=== PATIENT | female | born 1945 | race Caucasian/White ===

== ENCOUNTER → 2020-04-28 | Outpatient (CLI) | payer MEDICARE, OTHER ==
[~2020-04-28] MED LIST: FIRVANQ50 MG/1 ML PO; IPRATROPIUM BROM3 M1 IH; KLOR-CON M2020 MEQ PO; MELAT3MGTAB PO; NORCO 325 MG-51 TAB PO; SONATA 10MG10 MG PO; SYNTHROID0.075 MG/T PO; TOPROL XL 50MG50 MG PO; TOPROL XL100 MG PO; VITAMIN D 50,1.25 MG PO; XANAX .25M0.25 MG/TA PO
== END ==
LOC: COL.RAD 14:15
DX: N18.4 Chronic kidney disease, stage 4 (severe) (principal)

== ENCOUNTER 2022-06-17 11:41 | Inpatient (IN) | payer MEDICARE, OTHER ==
[~2022-06-17] VITALS: Ht 160 cm; Wt 37.2 kg
[2022-06-17 12:18] LABS: BASO % 0.3 % (0.0-2.0); EOS % 0.3 % (0.0-4.0); GRAN # 13.3 K/mm3 (1.4-6.5); GRAN % 87.2 % (42.2-75.2); LYMPH % 6.3 % (20.0-51.0); MEAN CELL VOLUME 89 fl (80.0-100.0); MEAN CORPUSCULAR HGB CONC 30 g/dl (33.0-37.0); MONO # 0.8 K/mm3 (0.1-0.6); MONO % 5.3 % (1.7-9.3); PLATELET COUNT 924 K/mm3 (130-400); RED BLOOD COUNT 3.37 M/mm3 (4.10-5.30); REDCELL DISTRIBUTION WIDTH-CV 16.5 % (11.5-14.5)
[2022-06-17 12:23] LABS: HEMOGLOBIN 8.9 g/dl (12.5-16.0); MEAN CORPUSCULAR HEMOGLOBIN 26 pg (27-31)
[2022-06-17 12:34] LABS: ALBUMIN 2.6 gm/dL (3.4-4.8); BILIRUBIN,TOTAL 0.4 mg/dL (0.2-1.2); CREATININE, serum 2.02 mg/dL (0.57-1.11); POTASSIUM 3.1 mmol/L (3.5-4.5); TOTAL PROTEIN 7.4 gm/dL (6.2-8.1)
[2022-06-17 12:45] LABS: CALCIUM 13.9 mg/dL (8.4-10.2); TROPONIN-I 0.331 ng/mL (0.00-0.033)
[2022-06-17 13:11] LABS: MAGNESIUM 1.8 mg/dL (1.6-2.6); PHOSPHOROUS 3.1 mg/dL (2.3-4.7)
[2022-06-17 13:35] LABS: PROTHROMBIN TIME 11.8 SECONDS (9.7-12.8)
[2022-06-17 13:45] LABS: URIC ACID 8.7 mg/dL (2.6-6.0)
[2022-06-17] MEDS ORDERED: DAZIDOX10 MG PO (14:44)
[2022-06-17] MEDS ORDERED: COZAAR 50MG50 MG/TAB PO (14:48)
[2022-06-17] MEDS ORDERED: ROXICODONE 55 MG/TAB PO (14:48)
[2022-06-17] MEDS ORDERED: SYNTHROID0.112 MG/T PO (14:49)
[2022-06-17] MEDS ORDERED: EFFEXOR XR37.5 MG/CA PO (14:49)
[2022-06-17] MEDS ORDERED: SONATA 10MG10 MG (14:50)
[2022-06-17 16:29] LABS: COLLECTION METHOD CATHETER
--- NOTE | 2022-06-17 16:33 | NUR ---
PT ADMITTED TO ROOM 309, REPORT RECEIVED FROM ED RN, PT ORIENTED TO ROOM/FLOOR ROUTINES, FALL PRECAUTIONS IN PLACE, CALL LIGHT IN REACH
[2022-06-17 16:37] VITALS: BP 158/76; PULSE 79; TEMP 97.7
[2022-06-17 16:40] LABS: PH 5.5 (5.0-8.5); URINE APPEARANCE Clear (CLEAR/HAZY); URINE BLOOD TRACE-INTACT (NEGATIVE); URINE COLOR Yellow (YELLOW); URINE GLUCOSE Negative (NEGATIVE); URINE KETONE Negative (NEGATIVE); URINE NITRATE Negative (NEGATIVE); URINE PROTEIN(semi-quant) 1+ (NEGATIVE); URINE UROBILINOGEN 0.2 E.U/dL (0.2-1.0)
[2022-06-17 16:41] LABS: MUCOUS Present (NOT PRESENT); SQUAMOUS EPITHELIAL 0-2 /hpf (0-10); URINE BACTERIA Rare /hpf (NONE SEEN)
[2022-06-17 19:49] VITALS: BP 129/66; PULSE 80; TEMP 97.8
[2022-06-18] VITALS (7 sets, daily range): BP systolic 141–173; BP diastolic 75–85; PULSE 62–94; TEMP 97.7–99.5
[2022-06-18 00:54] LABS: CALCIUM 11.3 mg/dL (8.4-10.2); CREATININE, serum 1.6 mg/dL (0.57-1.11)
--- NOTE | 2022-06-18 10:30 | NUR ---
PT C/O SEVERE HEADACHE, ALL VS WITHIN THE NORMAL LIMITS , DR OAKLEY NOTIFIED, PRN PAIN MEDICATION PRESCRIBED AND PT GIVEN.WILL CONTINUE TO MONITOR PT.
--- NOTE | 2022-06-18 11:03 | NUR ---
SW met with patient to complete intake. Patient provides that she lives in [facility] alone. Next of kin is her ex Zachery Larsen [phone]. Patient provides that she does not utilize DME, is independent with ADL's and does not utilize home health services at this time. PCP is Dr. Watt, [facility]. Patient provaides that she does not have anyone appointed as her DPOA/HC and does not desire to appoint anyone at this time. SW will continue to follow. DC plan: home
--- NOTE | 2022-06-18 11:52 | NUR ---
PT ALERT AND ORIENT X4, COMPLAINTS OF PAIN ON THE IV SITE, SOME EDEMA NOTED, IVF PUT ON STANDBY MODE AND IV CANNULAR REMOVED, TIP INTACT. NEW IV 20G CANNULAR FIXIED ON THE RIGHT FOREARM IV FLUID CONTINUED.PT HAS ORDERED BREAKFAST.
--- NOTE | 2022-06-18 18:11 | NUR ---
PT IS DOING FINE, VSS, ALERT AND ORIENT X4,NOLONGER HAVING HEADACHE,DENIES ANY PAIN BUT C/O OF BEING UNCOMFORTABLE IN BED, PT WANTS BED TO BE ELEVETED HIGH UP SO THAT SHE CAN WATCH TV.PT EDUCATED ON KEEPING THE BED LOW TO AVOID FALLS BUTS REFUSED TO UNDERSTAND. TELE DISCONTINUED BY DR OAKLEY DUE TO PT COMPLAINING THAT ITS TOO HEAVY AND ITS HURTING HER.
--- NOTE | 2022-06-18 20:30 | NUR ---
Initial shift assessment done- has been resting for past couple hours-- states does still have headache 02/13-will give [place] as ordered, no double vision, Up to BSC for some gas/no stool,, IV fluids of NS at 200cc/hr, [place] with yellow/mahad urine. VSS
[2022-06-19 04:07] VITALS: BP 138/72; PULSE 83; TEMP 98.1
[2022-06-19 06:20] LABS: BASO % 0.3 % (0.0-2.0); EOS # 0.2 K/mm3 (0.0-0.7); EOS % 1.6 % (0.0-4.0); GRAN # 9.9 K/mm3 (1.4-6.5); GRAN % 81.1 % (42.2-75.2); LYMPH # 1.1 K/mm3 (1.2-3.4); LYMPH % 9.4 % (20.0-51.0); MEAN CELL VOLUME 86 fl (80.0-100.0); MEAN CORPUSCULAR HGB CONC 31 g/dl (33.0-37.0); MONO # 0.9 K/mm3 (0.1-0.6); MONO % 7.1 % (1.7-9.3); RED BLOOD COUNT 2.91 M/mm3 (4.10-5.30); REDCELL DISTRIBUTION WIDTH-CV 16.5 % (11.5-14.5)
[2022-06-19 06:27] LABS: HEMOGLOBIN 7.7 g/dl (12.5-16.0); MEAN CORPUSCULAR HEMOGLOBIN 26 pg (27-31)
[2022-06-19 06:28] LABS: HEMATOCRIT 25.1 % (37.0-47.0)
[2022-06-19 06:29] LABS: PLATELET COUNT 730 K/mm3 (130-400)
[2022-06-19 06:48] LABS: ALBUMIN 1.9 gm/dL (3.4-4.8); CREATININE, serum 1.52 mg/dL (0.57-1.11); MAGNESIUM 1.3 mg/dL (1.6-2.6); PHOSPHOROUS 1.4 mg/dL (2.3-4.7); POTASSIUM 3.1 mmol/L (3.5-4.5)
--- NOTE | 2022-06-19 07:28 | NUR ---
Called Kimber GAONA to notify that urine in [place] is bloody , also IV rate is still at 200cc/hr , lung sounds very decreased in the bases, looked at I&O.s,, orders to decrease Iv rate to 125cc/hr, and to give 20mg lasix IV now, also heparin SQ is put on hold at this time.
--- NOTE | 2022-06-19 07:30 | NUR ---
Note just written at 0728 was done around 0100 this morning-- pt now states she is feeling better, has had 850cc of urine out the [place] since the IV Lasix was given -- did not sleep much,, was given [place] during the night a couple times for back ache and head aches, overall was restless, Up to BSC numerous times to have a stool but would just have gas- VSS throughout night, o2 sat 98% on RA
--- NOTE | 2022-06-19 07:56 | NUR ---
PT VS STABLE, PT SLEEPING DURING BEDSIDE REPORT.
[2022-06-19 08:07] VITALS: BP 142/82; PULSE 71; TEMP 97.7
[2022-06-19 11:07] VITALS: BP 139/75; PULSE 79; TEMP 98
[2022-06-19 16:05] VITALS: BP 139/80; PULSE 79; TEMP 97.7
--- NOTE | 2022-06-19 18:06 | NUR ---
pt vs stable , orient and alert x4, pt complaints of back pain throughout the day, prn pain medication given as prescribed but continued to report no improvement, heating pad and repositioning done all day long but pt continue to have discomfort, ct scan of the abdomen/pelvis and yash done without contrast. other due meds given no adverse reaction noted.pt now comfortably lying in bed.input 3098, output 1200
[2022-06-19 19:13] VITALS: BP 138/67; PULSE 81; TEMP 97.6
[2022-06-19 23:10] VITALS: BP 144/75; PULSE 77; TEMP 98.7
[2022-06-20 04:38] VITALS: BP 145/86; PULSE 81; TEMP 98.7
--- NOTE | 2022-06-20 06:28 | NUR ---
pt up most of the shift, calls frequently for pain meds, has to be reminded hourly when the next dose is due. reports very little relief even after 2nd tablet given. arshad patent/secure, up to bsc and to recliner/bed, frequent position changes with assist of 1. IVF infusing per PIV @75cc/hr, taking po well, no NV reported. asked for several snacks during the noc. 24 hr urine collection started @1900 last evening. kpad in place on back.
[2022-06-20 06:46] LABS: BASO % 0.3 % (0.0-2.0); EOS # 0.9 K/mm3 (0.0-0.7); EOS % 6.9 % (0.0-4.0); GRAN # 9.1 K/mm3 (1.4-6.5); GRAN % 72.8 % (42.2-75.2); LYMPH # 1.4 K/mm3 (1.2-3.4); LYMPH % 11.5 % (20.0-51.0); MEAN CELL VOLUME 87 fl (80.0-100.0); MEAN CORPUSCULAR HGB CONC 31 g/dl (33.0-37.0); MEAN PLATELET VOLUME 9.3 fl (7.4-10.4); MONO % 8.1 % (1.7-9.3); PLATELET COUNT 726 K/mm3 (130-400); RED BLOOD COUNT 2.69 M/mm3 (4.10-5.30)
[2022-06-20 06:48] LABS: HEMATOCRIT 23.5 % (37.0-47.0); HEMOGLOBIN 7.2 g/dl (12.5-16.0); MEAN CORPUSCULAR HEMOGLOBIN 27 pg (27-31)
[2022-06-20 06:55] LABS: ALBUMIN 1.9 gm/dL (3.4-4.8); CALCIUM 9.8 mg/dL (8.4-10.2); CREATININE, serum 1.59 mg/dL (0.57-1.11); MAGNESIUM 1.9 mg/dL (1.6-2.6); PHOSPHOROUS 1.5 mg/dL (2.3-4.7); POTASSIUM 3.7 mmol/L (3.5-4.5)
--- NOTE | 2022-06-20 06:59 | NUR ---
DR LAUREANO NOTIFIED OF ONCOLOGY CONSULT PER PHONE
[2022-06-20 07:59] VITALS: BP 124/75; PULSE 80; TEMP 98
[2022-06-20 11:33] VITALS: BP 148/82; PULSE 81; TEMP 97.9
[2022-06-20 15:53] VITALS: BP 167/86; PULSE 96; TEMP 97.6
--- NOTE | 2022-06-20 19:15 | NUR ---
24 hour urine collected and sent to lab, pavithra swift per order, removed 6cc water from balloon, balloon intact, pt tolerated well, able to use bsc immediately.
[2022-06-20 19:51] VITALS: BP 143/82; BP 166/101; PULSE 80; TEMP 97.9
[2022-06-20 23:18] VITALS: BP 150/81; PULSE 84; TEMP 97.8
[2022-06-20] MEDS ORDERED: FERRO-TIME325 MG PO (23:37)
[2022-06-20] MEDS ORDERED: ANTACID500 M1 PO (23:38)
[2022-06-20] MEDS ORDERED: FOLIC ACID 11 MG/TA1 PO (23:39)
[2022-06-20] MEDS ORDERED: B-12 500 MCG PO (23:39)
[2022-06-21 03:36] VITALS: BP 156/84; PULSE 87; TEMP 97.9
[2022-06-21 06:10] LABS: BASO % 0.3 % (0.0-2.0); EOS # 0.9 K/mm3 (0.0-0.7); EOS % 6.6 % (0.0-4.0); GRAN # 10.4 K/mm3 (1.4-6.5); GRAN % 77.3 % (42.2-75.2); LYMPH # 1.3 K/mm3 (1.2-3.4); LYMPH % 9.6 % (20.0-51.0); MEAN CELL VOLUME 89 fl (80.0-100.0); MEAN CORPUSCULAR HGB CONC 30 g/dl (33.0-37.0); MEAN PLATELET VOLUME 8.9 fl (7.4-10.4); MONO # 0.8 K/mm3 (0.1-0.6); MONO % 5.8 % (1.7-9.3); PLATELET COUNT 714 K/mm3 (130-400); RED BLOOD COUNT 2.84 M/mm3 (4.10-5.30); REDCELL DISTRIBUTION WIDTH-CV 17.1 % (11.5-14.5)
[2022-06-21 06:14] LABS: HEMATOCRIT 25.3 % (37.0-47.0); HEMOGLOBIN 7.5 g/dl (12.5-16.0); MEAN CORPUSCULAR HEMOGLOBIN 26 pg (27-31)
[2022-06-21 06:26] LABS: ALBUMIN 2.1 gm/dL (3.4-4.8); CALCIUM 10.1 mg/dL (8.4-10.2); CREATININE, serum 1.8 mg/dL (0.57-1.11); MAGNESIUM 1.7 mg/dL (1.6-2.6); PHOSPHOROUS 2.1 mg/dL (2.3-4.7); POTASSIUM 4.4 mmol/L (3.5-4.5)
--- NOTE | 2022-06-21 07:09 | NUR ---
PT requested and given ambien at HS for sleep, percocet x2 for pain, voiding well since arshad dc'd, IVF dc'd during the noc, pt taking po fluids and eating well, no NV reported, pt had bm at beginning of shift, still need stool specimen. up ambulating in room with sba.
[2022-06-21 07:19] VITALS: BP 139/84; PULSE 91; TEMP 98.4
[2022-06-21] MEDS ORDERED: CALPHRON667 MG PO ×3 (09:01→09:26)
[2022-06-21] MEDS ORDERED: PHOSPHA 250 NEU1 TAB PO (09:30)
--- NOTE | 2022-06-21 10:46 | NUR ---
Patient scheduled to discharge later today. TREY presented patient with MCR.IM form. Education provided and the patient verbalizes her agreement with discharge plan to home. Signed original placed in the patient's chart and copy provided to the patient.
--- NOTE | 2022-06-21 11:16 | NUR ---
DISCHARGED DISCUSSED WITH PT, ALL QUESTIONS AND CONCERNS WERE ADDRESSED, PT UNDERSTANDS THAT SHE IS TO BE BACK AT THE HOSPITAL IN THE AM FOR HER BONE MARROW BIOPSY, PT LEFT WITH ALL HER BELONGINGS BY WHEELCHAIR TO PRIVATE VEHICLE
[2022-06-21 17:03] LABS: URINE HOURS (UPEP) 24 (())
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
[2022-06-23] VITALS (474 sets, daily range): O2SAT 93–100
[2022-06-23 07:40] LABS: A/G RATIO (PEP) 0.64 (()); BETA GLOBULINS (PEP) 0.7 g/dL (0.7-1.2)
[2022-06-24 14:12] LABS: PTH-RELATED PEPTIDE 0.7 pmol/L (())
== END 2022-06-21 11:18 | disposition home or self-care (01) | DRG 682 ==
LOC: COL.ER 11:41 → MEDICAL 14:46
PROVIDERS: Internal Medicine; Nurse Practitioner Family; Physician Assistant; ADMIT Internal Medicine
DX: E88.3 Tumor lysis syndrome (principal); E43 Unspecified severe protein-calorie malnutrition; I21.A1 Myocardial infarction type 2; R18.8 Other ascites; J91.8 Pleural effusion in other conditions classified elsewhere; F11.20 Opioid dependence, uncomplicated; E83.52 Hypercalcemia; N17.9 Acute kidney failure, unspecified; E03.9 Hypothyroidism, unspecified; D75.839 Thrombocytosis, unspecified; D72.829 Elevated white blood cell count, unspecified; I12.9 Hypertensive chronic kidney disease with stage 1 through stage 4 chronic kidney disease, or unspecified chronic kidney disease; N18.9 Chronic kidney disease, unspecified; H53.2 Diplopia; E79.0 Hyperuricemia without signs of inflammatory arthritis and tophaceous disease; E87.6 Hypokalemia; D63.1 Anemia in chronic kidney disease; I27.20 Pulmonary hypertension, unspecified; G89.29 Other chronic pain; M62.81 Muscle weakness (generalized); M54.9 Dorsalgia, unspecified; R31.9 Hematuria, unspecified; Z90.710 Acquired absence of both cervix and uterus; Z79.890 Hormone replacement therapy
CPT/HCPCS: J1644; J1756; J1940; J2270; J2430; J3475; J7030

== ENCOUNTER 2022-06-22 07:47 | Inpatient (IN) | payer MEDICARE ==
[~2022-06-22] VITALS: Ht 152.4 cm; Wt 46.2 kg
[2022-06-22] VITALS (733 sets, daily range): BP systolic 108–170; BP diastolic 50–95; PULSE 45–65; TEMP 95.9–100; O2SAT 98–100
[~2022-06-22 07:47] MED LIST changes: +ANTACID500 M1 PO; +B-12 500 MCG PO; +CALPHRON667 MG PO; +COZAAR 50MG50 MG/TAB PO; +DAZIDOX10 MG PO; +EFFEXOR XR37.5 MG/CA PO; +FERRO-TIME325 MG PO; +FOLIC ACID 11 MG/TA1 PO; +PHOSPHA 250 NEU1 TAB PO; +ROXICODONE 55 MG/TAB PO; +SONATA 10MG10 MG; +SYNTHROID0.112 MG/T PO
[2022-06-22 08:14] LABS: BASO # 0.1 K/mm3 (0.0-0.2); BASO % 0.2 % (0.0-2.0); EOS # 0.2 K/mm3 (0.0-0.7); GRAN # 18.9 K/mm3 (1.4-6.5); GRAN % 85.3 % (42.2-75.2); LYMPH # 1.4 K/mm3 (1.2-3.4); LYMPH % 6.4 % (20.0-51.0); MEAN CELL VOLUME 89 fl (80.0-100.0); MEAN CORPUSCULAR HGB CONC 30 g/dl (33.0-37.0); MEAN PLATELET VOLUME 8.8 fl (7.4-10.4); MONO # 1.3 K/mm3 (0.1-0.6); PLATELET COUNT 764 K/mm3 (130-400); RED BLOOD COUNT 3.03 M/mm3 (4.10-5.30); REDCELL DISTRIBUTION WIDTH-CV 17.4 % (11.5-14.5)
[2022-06-22 08:16] LABS: HEMATOCRIT 26.9 % (37.0-47.0); HEMOGLOBIN 8.1 g/dl (12.5-16.0); MEAN CORPUSCULAR HEMOGLOBIN 27 pg (27-31)
[2022-06-22 08:26] LABS: ALBUMIN 2.3 gm/dL (3.4-4.8); BILIRUBIN,TOTAL 0.2 mg/dL (0.2-1.2); CALCIUM 10.4 mg/dL (8.4-10.2); CREATININE, serum 1.83 mg/dL (0.57-1.11); POTASSIUM 4.5 mmol/L (3.5-4.5); TOTAL PROTEIN 6.3 gm/dL (6.2-8.1)
[2022-06-22 08:27] LABS: C-REACTIVE PROTEIN 14.86 mg/dL (0.00-0.50)
[2022-06-22 08:58] LABS: COLLECTION METHOD CATHETER
--- NOTE | 2022-06-22 08:59 | NUR ---
PT INTUBATED DUE TO UNRESPONSIVENESS. INTUBATED WITHOUT ISSUE. PT IS CURRENTLY SEDATED AND COMFORTABLE.
[2022-06-22 09:15] LABS: SQUAMOUS EPITHELIAL None Seen /hpf (0-10); URINE BACTERIA None Seen /hpf (NONE SEEN); URINE RBC >50 /hpf (0-2)
[2022-06-22 09:16] LABS: URINE APPEARANCE Cloudy (CLEAR/HAZY); URINE BLOOD 3+ (NEGATIVE); URINE COLOR OTHER (YELLOW); URINE GLUCOSE Negative (NEGATIVE); URINE KETONE Negative (NEGATIVE); URINE NITRATE Negative (NEGATIVE); URINE PROTEIN(semi-quant) 2+ (NEGATIVE); URINE UROBILINOGEN 0.2 E.U/dL (0.2-1.0)
[2022-06-22 09:17] LABS: ARTERIAL BLD GAS O2 SATURATION 99.7 % (92-100); ARTERIAL BLD GAS TCO2 CT 22.8; ARTERIAL BLOOD GAS BASE EXCESS -0.5 (-2-2); ARTERIAL BLOOD GAS PCO2 27.2 mmHg (35-45); ARTERIAL BLOOD GAS pH 7.53 (7.35-7.45)
[2022-06-22 09:34] LABS: TRICYCLIC ANTIDEPRESS URINE NEGATIVE
--- NOTE | 2022-06-22 10:00 | NUR ---
PT ADMITTED FROM ED. PT IS INTUBATED AND SEDATED. PT IS HYPOTHERMIC WITH CORE TEMP 95, BEARHUGGER APPLIED. PT HAS LEFT ART LINE WITH BP IN THE 120'S. PT HAS BILATERAL EYE BRUISING, BRUISED AND SWOLLEN NOSE, AND SWOLLEN KNOT TO RIGHT FOREHEAD. HERB CUNNINGHAM BEDSIDE FOR PICC LINE. AND NOTIFIED OF ARRIVAL. PT'S DPOA RENNY UPDATED.
--- NOTE | 2022-06-22 10:56 | NUR ---
Initial visit; Patient brought into Emergency Services and transferred to ICU. Montessori Paraprofessional offered silent prayer outside patient's room while she was undergoing a 'Procedure.' Montessori Paraprofessional prayed that Leilani be kept comfortable and healed according to God's Will. Montessori Paraprofessional will continue to look in on patient.
--- NOTE | 2022-06-22 11:21 | NUR ---
NOTIFIED THAT PT'S PUPILS ARE NOT REACTIVE. ORDER TO CONSULT .
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
[2022-06-22 12:42] LABS: INR 1.1 (0.8-3.0); PROTHROMBIN TIME 12.9 SECONDS (9.7-12.8)
--- NOTE | 2022-06-22 13:00 | NUR ---
NOTIFIED OF ELEVATED TROP AND LOW MAG LEVEL.
--- NOTE | 2022-06-22 14:30 | NUR ---
Pt's core temp up to 37.6. Leonora removed.
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
--- NOTE | 2022-06-22 16:06 | NUR ---
PT'S BP RISING UP TO THE 160'S. PT BRADYCARDIC IN THE 50'S. BEARHUGGER REMOVED EARLIER BUT TEMP STILL RISING, ICE AND FAN APPLIED. NOTIFIED OF ABOVE.
--- NOTE | 2022-06-22 17:00 | NUR ---
SEDATION PREVIOUSLY SHUT OFF DUE TO BRADYCARDIA. PT STILL DOES NOT RESPOND TO VOICE OR TOUCH. PTS PUPILS STILL 2MM AND SLIGHLY REACTIVE.
--- NOTE | 2022-06-22 17:58 | NUR ---
1700- AND NOTIFIED OF PT'S HR IN THE 40'S, BP IN THE 170'S, AND TEMP 100. ORDERS RECEIVED FOR ATROPINE, MANNITOL, HYDRALAZINE. CONSULTED WHO CAME BEDSIDE TO EVAL PT. PLAN TO PLACE EXTERNAL PACER. 1730- PT'S HR IN THE 80'S, BP IN THE 150'S, AND TEMP 97.3. NOTIFIED AND STATED CONTINUE WITH EXTERNAL PACER. CONSENT OBTAINED BY RENNY GUTIERREZ. 1750- PT TAKEN TO MID TEACHER BY LETTY RN, AND RICHARD RT. PT ON NS AND MANNITOL. PT PLACED ON TRANSPORT MONTIOR. RENNY GUTIERREZ UPDATED.
--- NOTE | 2022-06-22 19:17 | NUR ---
Pt back from slab polisher. Pt SR 60. BP slightly elevated. bedside. Report given to Aye CUNNINGHAM.
[2022-06-22 19:21] LABS: CALCIUM 9.2 mg/dL (8.4-10.2); CREATININE, serum 1.64 mg/dL (0.57-1.11); POTASSIUM 4.2 mmol/L (3.5-4.5)
--- NOTE | 2022-06-22 20:00 | NUR ---
SUICIDE RISK NOT COMPLETE DUE TO PATIENT UNRESPONSIVE ON VENT.
--- NOTE | 2022-06-22 20:40 | NUR ---
ASSESSMENT COMPLETE AND CHARTED. PUPILS NONREACTIVE. ONLY RESPONSE FROM PATIENT IS MOVEMENT OF RIGHT FOOT AND EYE OPENING WHEN REPOSITIONED.
[2022-06-23] VITALS (680 sets, daily range): BP systolic 113–158; BP diastolic 51–72; PULSE 54–56; TEMP 97.7–99; O2SAT 98–100
[2022-06-23 04:53] LABS: MEAN CELL VOLUME 89 fl (80.0-100.0); MEAN CORPUSCULAR HGB CONC 30 g/dl (33.0-37.0); MEAN PLATELET VOLUME 8.9 fl (7.4-10.4); RED BLOOD COUNT 2.38 M/mm3 (4.10-5.30); REDCELL DISTRIBUTION WIDTH-CV 17.2 % (11.5-14.5)
[2022-06-23 05:08] LABS: INR 1.1 (0.8-3.0); PROTHROMBIN TIME 12.7 SECONDS (9.7-12.8)
[2022-06-23 05:14] LABS: ALBUMIN 1.9 gm/dL (3.4-4.8); BILIRUBIN,TOTAL 0.2 mg/dL (0.2-1.2); CALCIUM 8.5 mg/dL (8.4-10.2); CREATININE, serum 1.55 mg/dL (0.57-1.11); MAGNESIUM 2.4 mg/dL (1.6-2.6); POTASSIUM 4.3 mmol/L (3.5-4.5); TOTAL PROTEIN 5.4 gm/dL (6.2-8.1)
[2022-06-23 05:32] LABS: HEMATOCRIT 21.1 % (37.0-47.0); MEAN CORPUSCULAR HEMOGLOBIN 27 pg (27-31); PLATELET COUNT 536 K/mm3 (130-400)
[2022-06-23 05:33] LABS: HEMOGLOBIN 6.4 g/dl (12.5-16.0); TROPONIN-I 0.065 ng/mL (0.00-0.033)
[2022-06-23 05:39] LABS: ARTERIAL BLD GAS TCO2 CT 19.7; ARTERIAL BLOOD GAS BASE EXCESS -4.1 (-2-2); ARTERIAL BLOOD GAS HCO3 18.9 meq/L (22-26); ARTERIAL BLOOD GAS PCO2 25.6 mmHg (35-45); ARTERIAL BLOOD GAS pH 7.49 (7.35-7.45)
[2022-06-23 05:40] LABS: ARTERIAL BLOOD GAS PO2 140.7 mmHg (80-100)
[2022-06-23 06:25] LABS: ANISOCYTOSIS 1+; BAND 5 % (0-10); HYPOCHROMIA 3+; LYMPHOCYTE 1 % (20.0-51.0); NEUTROPHILS 93 % (42.0-75.2); PLATELET ESTIMATE INCREASED (NORMAL)
--- NOTE | 2022-06-23 07:20 | NUR ---
Report given to Huma CUNNINGHAM
--- NOTE | 2022-06-23 07:45 | NUR ---
Patient's eyes closed. When lights were turned on this nurse observed patient's eye lids flutter but did not open. Would not open eyes or squeeze hands upon command. While assessing legs and feet patient would move her feet and lower extremities on the bed. Pupils are equal and reactive to light. VS stable at this time; will continue to monitor.
--- NOTE | 2022-06-23 09:52 | NUR ---
Unable to perform suicide screening as patient is intubated and only responsive to painful stimuli.
--- NOTE | 2022-06-23 11:24 | NUR ---
Follow-up: Ingot Weigher offered silent prayer outside of her room again today. Ingot Weigher will keep patient in her prayers.
--- NOTE | 2022-06-23 11:51 | NUR ---
Introduced myself to Kandace GUTIERREZ, and provided my contact information
[2022-06-23 12:12] LABS: HEMATOCRIT 23.3 % (37.0-47.0); HEMOGLOBIN 7.4 g/dl (12.5-16.0)
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
--- NOTE | 2022-06-23 14:30 | NUR ---
JAMEEL Humphries notified about patient's follow up HGB of 7.4. Also notified that [facility] will be unable to perform the EEG today. No further orders received.
--- NOTE | 2022-06-23 15:41 | NUR ---
car worker received a call from a female stating she was patient's biological daughter. Worker contacted Kandace, durable power of teacher education instructor for health care and provided the information. Kandace stated she was appointed financial power of teacher education instructor this date. Worker collaborated with patient's nurses and warehouseman regarding the above information.
--- NOTE | 2022-06-23 16:00 | NUR ---
Opens eyes while assisting with repositioning and providing cares. Moves lower extremities with physical stimuli. However, not able to follow any verbal commands at this time.
--- NOTE | 2022-06-23 17:23 | NUR ---
Sedation vacation not performed as patient is not currenlty on any sedation.
--- NOTE | 2022-06-23 20:00 | NUR ---
ASSESSMENT COMPLETE AND CHARTED. AT 1948 PATIENT EYES OPEN, TACHYPNEA AND HTN IN 170-180S SYSTOLIC PRESENT. ABLE TO SPEAK WITH PATIENT AND CALM. PATIENT CONTINUES WITHOUT SEDATION AND EASILY CALMED. REPOSITIONED AT THIS TIME.
[2022-06-24] VITALS (1212 sets, daily range): BP systolic 113–144; BP diastolic 49–91; PULSE 55–62; TEMP 97–98.2; O2SAT 83–100
[2022-06-24 04:23] LABS: BASO % 0.1 % (0.0-2.0); GRAN # 12.7 K/mm3 (1.4-6.5); GRAN % 89.8 % (42.2-75.2); LYMPH # 0.8 K/mm3 (1.2-3.4); LYMPH % 5.5 % (20.0-51.0); MEAN CELL VOLUME 88 fl (80.0-100.0); MEAN CORPUSCULAR HGB CONC 31 g/dl (33.0-37.0); MEAN PLATELET VOLUME 9.3 fl (7.4-10.4); MONO # 0.5 K/mm3 (0.1-0.6); MONO % 3.6 % (1.7-9.3); PLATELET COUNT 494 K/mm3 (130-400); RED BLOOD COUNT 2.66 M/mm3 (4.10-5.30); REDCELL DISTRIBUTION WIDTH-CV 17.1 % (11.5-14.5)
[2022-06-24 04:31] LABS: INR 1.1 (0.8-3.0); PROTHROMBIN TIME 12.5 SECONDS (9.7-12.8)
[2022-06-24 04:34] LABS: HEMATOCRIT 23.5 % (37.0-47.0); HEMOGLOBIN 7.2 g/dl (12.5-16.0); MEAN CORPUSCULAR HEMOGLOBIN 27 pg (27-31)
[2022-06-24 04:34] LABS: ARTERIAL BLD GAS O2 SATURATION 98.3 % (92-100); ARTERIAL BLOOD GAS BASE EXCESS -2.3 (-2-2); ARTERIAL BLOOD GAS HCO3 20.8 meq/L (22-26); ARTERIAL BLOOD GAS PCO2 28.9 mmHg (35-45); ARTERIAL BLOOD GAS PO2 116.3 mmHg (80-100); ARTERIAL BLOOD GAS pH 7.48 (7.35-7.45)
[2022-06-24 04:42] LABS: ALBUMIN 1.9 gm/dL (3.4-4.8); BILIRUBIN,TOTAL 0.2 mg/dL (0.2-1.2); CALCIUM 7.8 mg/dL (8.4-10.2); CREATININE, serum 1.65 mg/dL (0.57-1.11); TOTAL PROTEIN 5.5 gm/dL (6.2-8.1)
--- NOTE | 2022-06-24 07:34 | NUR ---
REPORT GIVEN TO JOVANY CUNNINGHAM
--- NOTE | 2022-06-24 07:49 | NUR ---
REPORT RECEIVED FROM OCTAVIO SONI; PATIENT WAS STABLE OVERNIGHT AND VITAL SIGNS WERE WITHIN NORMAL LIMITS. PATIENT REMAINS ON VENTILATOR WITH NO SEDATION RUNNING AND NS RUNNING AT 75 ML/HR THROUGH HER RIGHT UPPER ARM PICC. PATIENT HAS BEEN MINIMALLY RESPONSIVE EVEN OFF SEDATION AND WILL NOT FOLLOW COMMANDS OR RESPOND TO VERBAL STIMULI.
--- NOTE | 2022-06-24 09:57 | NUR ---
Follow-up: Call Specialist offered prayer at patient's bedside. Call Specialist's prayer petitioned for comfort for Leilani, for healing if it is God's will and if His plan is for her to join Him, Call Specialist's pray's for a blessed journey.
--- NOTE | 2022-06-24 11:13 | NUR ---
Met with patient's friend and DPOA, Kandace, at bedside. Kandace states she and Dr. Watt have talked and feel that Leilani would not want to live like this. They are leaning towards compassionate extubation/comfort care but have not decided when as Dr. Watt would like to be present. Current plan is for Dr. Watt to talk with Dr. Ochoa and when she is done with clinic this afternoon, visit the patient and decide with Kandace. SW aware and has also talk with Kandace and Dr. Ochoa.
--- NOTE | 2022-06-24 11:21 | NUR ---
dry transfer worker spoke with Dr Watt and confirmed that patient does not have a daughter or any children. Worker met with Kandace and offered support. Kandace states she has secured patient's purse and changing locks at patient's apartment. Palliative care nurse, Oxana, is meeting with Kandace. Plan will be to extubate patient and provide comfort care. Kandace states she has some experience with withdrawing care with family members.
--- NOTE | 2022-06-24 17:08 | NUR ---
SEDATION VACATION NOT PERFORMED TODAY PATIENT IS NO LONGER ON SEDATION AND PATIENT IS STILL NOT RESPONSIVE AND DOES NOT FOLLOW VERBAL COMMANDS.
--- NOTE | 2022-06-24 18:00 | NUR ---
PATIENT IS SHIFTING TO COMFORT CARE AT THIS TIME PER DECISION MADE BY PATIENT'S DPOA. COMFORT CARE MEDS INCLUDING ATIVAN AND MORPHINE TO BE GIVEN PRIOR TO EXTUBATING PATIENT.
--- NOTE | 2022-06-24 18:08 | NUR ---
WINSOME FROM [employer] DEACTIVATED PATIENT'S PACER AND TOOK THE CASING FROM THE EXTERNAL DIFIBRILATOR. AFTER DEACTIVATION OF DEVICE ESTUARDO RT AND MYSELF EXTUBATED THE PATIENT AT 1802. PATIENT WAS GIVEN MORPHINE AND ATIVAN BEFOREHAND PER COMFORT CARE PROTOCOL. PATIENT TOLERATED PROCEDURE WELL BUT REMAINS UNRESPONSIVE.
--- NOTE | 2022-06-24 18:10 | NUR ---
RT CALLED TO BEDSIDE TO COMPASSIONATELY EXTUBATE, TUBE AND VENTILATOR TURNED OFF 1802. RN CONFIRMED EXTUBATION AT 1802, VISITORS AT BEDSIDE.
--- NOTE | 2022-06-24 19:30 | NUR ---
Received report from OCTAVIO Huitron.
--- NOTE | 2022-06-24 20:00 | NUR ---
Patient resting quietly in bed. Patient's DPOA, Kandace, is at the bedside. Patient repositioned with assistance of OCTAVIO Huitron. Patient is minimally responsive. Vitals remain within normal limits; she is on room air. Apneic periods noted with respirations. Lungs are course throughout to auscultation. Will administer PRN medication to promote comfort.
--- NOTE | 2022-06-24 22:00 | NUR ---
Patient minimally responsive. Unable to answer yes or no questions at this time; unable to complete suicide risk assessment.
[2022-06-25] VITALS (1164 sets, daily range): BP systolic 77–132; BP diastolic 54–69; PULSE 58–67; TEMP 96.4–97.3; O2SAT 75–99
--- NOTE | 2022-06-25 20:00 | NUR ---
PT IS ON COMFORT CARE. DPOA IS AT BEDSIDE. PT NOT RESPONSIVE TO VERBAL COMMANDS, MILDLY AROUSABLE TO PAIN. COMFORT CARE MEASURES BEING PROVIDED.
[2022-06-26] VITALS (1212 sets, daily range): BP systolic 91–160; BP diastolic 62–89; PULSE 68–93; TEMP 98–99; O2SAT 77–100
--- NOTE | 2022-06-26 10:57 | NUR ---
PT RESTING IN BED, RENNY GUTIERREZ AT BEDSIDE THIS MORNING. PT OPENS EYES SPONTANEOUSLY AND DOES FOLLOW SOME VERBAL COMMANDS, WILL SQUEEZE HANDS, MOVE EXTREMITIES L>R, CAN BEND AND LIFT RT LEG W/ EASE. PT IS VERBAL, CONVERSATION CONFUSED. PT DID ASK "WHAT IS GOING ON" DURING REPOSITIONING. PT ABLE TO STATE SHE "HURTS ALL OVER". PT DOES NOT TRACK WITH EYES. VSS.
--- NOTE | 2022-06-26 20:00 | NUR ---
SHIFT REPORT RECEIVED. PT'S DPOA AT BEDSIDE. PT AWAKE AND ALERT. ABLE TO ANSWER SOME QUESTIONS VERBALLY WITH SLOW RESPONSES. ABLE TO VERBALIZE PAIN BUT DECLINED PAIN MEDICATION AT THIS TIME. PUPILS REACTIVE BUT SLUGGISH. NOT TRACKING VISUALLY WITH MOVEMENTS OR TO COMMANDS. ABLE TO BOTANICAL TECHNICAL OFFICER HANDS ON COMMAND, RT HAND MODERATE GRASP, LT HAND WEAK GRASP. ABLE TO WIGGLE TOES BL FEET ON COMMAND. EXTREME BLE WEAKNESS. LT HAND +1 PITTING EDEMA.
[2022-06-27] VITALS (636 sets, daily range): BP systolic 124–145; BP diastolic 8–98; PULSE 63–93; TEMP 97.8–99.7; O2SAT 87–99
--- NOTE | 2022-06-27 07:00 | NUR ---
PT RESTING IN BED. VSS. AND RENNY GUTIERREZ HAD PLAN OF CARE MEETING AND DECIDED ON HOPSICE HOUSE. WILL NOTIFIED PALLATIVE CARE NURSE AND TREY.
--- NOTE | 2022-06-27 11:57 | NUR ---
1140-report called to maritza cunningham. all questions answered. Kandace GUTIERREZ notified of transfer. 1155- Pt transfered to room 312. Maritza CUNNINGHAM met bedside. Singh JORGENSEN notified of transfer and questioned regarding dc of pacer wire. Awaiting orders.
--- NOTE | 2022-06-27 13:07 | NUR ---
Attended meeting with TREY Gil and DPOA/Guardian Kandace. Discussed nursing facilities, hospice agencies, and insurance/MCR coverage of each. Kandace provided with [facility] list of hospice agencies and nursing facilities. She requested referral be sent to [facility] with [facility] and will talk with [facility] and patient's torsion spring coiling machine setter to ensure all needs met. Kandace has my contact information as well as Louise's. Primary nurse updated as well.
--- NOTE | 2022-06-27 14:29 | NUR ---
rack worker met with patient's Guardian/conservator, Laura. Patient is awake from removal of ventilator and plan is to transfer to hospice care. Worker confirmed that the [facility] does not have any openings. Worker also advised that [facility] does not have any roasterman care openings. Worker provided the Medicare gov/share options for nursing facility and hospice care. Worker provided referrals to [facility] and confirmed with [facility] that [facility] accept. Worker advised that facility care would be private pay as not going to be skilled. Kandace verbalized understanding of the above and will contact Daren and also patient's insurance attorney to secure payment to facility. Kandace stated that she wishes to utilize [facility] and has made a call to them. Worker spoke with Hiren at [facility] and faxed clinical referral. Hiren states they spoke with Daren [facility] and will plan to admit on 06/28/22. Awaiting word from Kandace to secure finances to pay nursing facility.
--- NOTE | 2022-06-27 14:44 | NUR ---
Received call from [facility]/Jennifer requesting referral. They can tentatively accept the patient in the hospice house tomorrow. Jennifer aware of pending admit to [facility]. SW updated and referral resent via secure email to Jennifer per her request. Update called to BRENDA Jeronimo, as well.
--- NOTE | 2022-06-27 18:30 | NUR ---
PATIENT IS LAYING BED AT THIS TIME. THE DPOA RENNY IS AT BEDSIDE. THE PATIENT IS STATING THAT SHE DOES NOT KNOW WHO RENNY IS. THE PATIENT LAYING THERE WITH EYES WIDE OPEN, IS ABLE TO TELL THIS RN HER COMFORTABILITY LEVEL. NO OTHER CONCERNS AT THIS TIME. WILL CONTIUE TO MONITOR.
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
--- NOTE | 2022-06-28 06:04 | NUR ---
PT HAD UNEVENTFUL NIGHT, THE PATIENT WAS LAYING SIDEWAYS IN THE BED, STRAIGHTENED THE PATIENT OUT AND GAVE ATIVAN PER MAR. THE PATIENT STATES THAT SHE HAS ANXIETY AND SHE IS GETTING WORKED UP HAVING TO STAY HERE AND NOT GO HOME.
--- NOTE | 2022-06-28 09:05 | NUR ---
Call made to DPOA/guardian Kandace with update. Despite patient's improvemed mental status, she feels it is still appropriate for hospice as it was suspected the patient has multiple myeloma that will not be treated. Updated care team and TREY.
[2022-06-28] MEDS ORDERED: TRANSDERM-0.5 MG/21 TD (09:29)
[2022-06-28] MEDS ORDERED: DULCOLAX S10 MG/SUPP RC (09:29)
[2022-06-28] MEDS ORDERED: SYSTANE 0.4%-0.1 SOL OU (09:29)
[2022-06-28] MEDS ORDERED: ROXANOL 20MG20 MG/ML SL (09:30)
[2022-06-28] MEDS ORDERED: ATIVAN 1MG T1 MG/TAB PO (09:30)
--- NOTE | 2022-06-28 11:33 | NUR ---
Follow-up visit; Rougher Helper spoke with Leilani letting her know she had been in Rougher Helper's prayers and that Rougher Helper had prayed for her at her bedside. She appeared to understand what Rougher Helper was saying to her. Leilani was not able to eat on he own but said she wanted to sit up. Rougher Helper found her nurse and let her know what Leilani said in hopes that patient would eat something if her nurse sat her up.
--- NOTE | 2022-06-28 13:00 | NUR ---
Fax Machine Operator collaborated with [facility] Palliative RN who advised [facility] can accept patient today and that this would be Kandace's first preference. TREY contacted Kandace who confirmed plan is to discharge to [facility] today. TREY scheduled [facility] to garbage pick up worker patient at 1330 and notified Hiren at [facility] of time. TREY faxed discharge orders and negative covid results. TREY placed completed EMS forms on chart. Discharge Plan: [facility]
== END 2022-06-28 13:48 | disposition hospice, inpatient (51) | DRG 100 ==
LOC: COL.ER 07:47 → ICU 09:02 → MEDICAL 06-27 11:55
PROVIDERS: Family Medicine; ADMIT Internal Medicine
PROC: 0BH17EZ Insertion of Endotracheal Airway into Trachea, Via Natural or Artificial Opening (ICD-10-PCS; principal; 2022-06-22)
PROC: 5A1945Z Respiratory Ventilation, 24-96 Consecutive Hours (ICD-10-PCS; 2022-06-22)
PROC: 02HV33Z Insertion of Infusion Device into Superior Vena Cava, Percutaneous Approach (ICD-10-PCS; 2022-06-22)
PROC: 5A1223Z Performance of Cardiac Pacing, Continuous (ICD-10-PCS; 2022-06-23)
PROC: 30233N1 Transfusion of Nonautologous Red Blood Cells into Peripheral Vein, Percutaneous Approach (ICD-10-PCS; 2022-06-23)
DX: R56.9 Unspecified convulsions (principal); E43 Unspecified severe protein-calorie malnutrition; J96.90 Respiratory failure, unspecified, unspecified whether with hypoxia or hypercapnia; J18.9 Pneumonia, unspecified organism; G93.40 Encephalopathy, unspecified; Z68.1 Body mass index [BMI] 19.9 or less, adult; G93.1 Anoxic brain damage, not elsewhere classified; C90.00 Multiple myeloma not having achieved remission; Z66 Do not resuscitate; Z51.5 Encounter for palliative care; Z20.822 Contact with and (suspected) exposure to COVID-19; N18.30 Chronic kidney disease, stage 3 unspecified; I12.9 Hypertensive chronic kidney disease with stage 1 through stage 4 chronic kidney disease, or unspecified chronic kidney disease; E03.9 Hypothyroidism, unspecified; D75.839 Thrombocytosis, unspecified; R00.1 Bradycardia, unspecified; E83.52 Hypercalcemia; D64.9 Anemia, unspecified; T14.8XXA Other injury of unspecified body region, initial encounter; X58.XXXA Exposure to other specified factors, initial encounter; Y92.009 Unspecified place in unspecified non-institutional (private) residence as the place of occurrence of the external cause; G89.29 Other chronic pain; M54.9 Dorsalgia, unspecified; E79.0 Hyperuricemia without signs of inflammatory arthritis and tophaceous disease; Z79.891 Long term (current) use of opiate analgesic; Z90.710 Acquired absence of both cervix and uterus; Z86.73 Personal history of transient ischemic attack (TIA), and cerebral infarction without residual deficits
CPT/HCPCS: C1751; C1894; C1898; C9113; J0330; J0360; J0461; J0692; J1100; J1644; J1940; J1953; J2060; J2250; J2270; J2405; J2704; J3010; J3370; J3475; J7030; J7050; P9016